=== PATIENT | female | born 1985 | race Caucasian/White ===

== ENCOUNTER 2017-07-25 21:31 | Emergency (ER) | payer SELFPAY ==
[~2017-07-25] VITALS: Ht 177.8 cm; Wt 77.1 kg
[~2017-07-25 21:31] MED LIST: ACULAR 3 ML3 M1 OP; AUGMENTIN 875 M1 TAB PO; BACTRIM DS 8001 TA1 PO; CLARITIN10 MG; CYCLOBENZAPRINE5 M3 PO; DOXYCYCLINE HY100 M3 PO; ESCITALOPRAM OX20 MG PO; FLEXERIL10 MG PO; HYDROCODONE BIT1 T11 PO; K-DUR 2020 MEQ PO; KEFLEX500 MG PO; LEXAPRO10 MG; LEXAPRO10 MG PO; LEXAPRO20 MG PO; MACROBID100 M1 PO; Motrin,Rufen800 MG PO; NAPROSYN500 MG PO; NKHM; PYRIDIUM200 M1 PO; TOBREX OPHTH S2.5 ML OPH; TRAMADOL HCL50 MG PO; TYLENOL W/CODEI1 TA2 PO; VICODIN 5/500 505 MG PO; ZOVIRAX400 MG PO
[2017-07-25] MEDS ORDERED: CLINDAMYCIN HC300 MG PO (22:34)
[2017-07-25] MEDS ORDERED: NAPROSYN500 MG PO (22:34)
== END 2017-07-25 22:37 | disposition home or self-care (01) ==
LOC: ED 21:31
DX: K02.9 Dental caries, unspecified (principal); F17.200 Nicotine dependence, unspecified, uncomplicated

== ENCOUNTER 2017-12-02 16:35 | Emergency (ER) | payer SELFPAY ==
[~2017-12-02] VITALS: Ht 177.8 cm; Wt 74.8 kg
--- NOTE | ~2017-12-02 | EKG ---
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
[~2017-12-02 16:35] MED LIST changes: +CLINDAMYCIN HC300 MG PO
[2017-12-02] MEDS ORDERED: VALIUM2 MG PO (16:42)
[2017-12-02] MEDS ORDERED: CELEXA40 MG PO (16:42)
[2017-12-02] MEDS ORDERED: VISTARIL50 MG PO (16:42)
[2017-12-02 17:15] LABS: BASO % 0.3 % (0.0-1.0); EOS # 0.1 10*3/uL (0.0-0.4); HEMATOCRIT 46.3 % (37.0-47.0); LYMPH # 2.1 10*3/uL (1.3-4.4); LYMPH % 21.6 % (27.0-41.0); MEAN CELL VOLUME 94.1 fl (81.0-99.0); MEAN CORPUSCULAR HGB 30.5 pg (27.0-31.0); MEAN CORPUSCULAR HGB CONC 32.4 g/dl (33.0-37.0); MEAN PLATELET VOLUME 11.4 fl (9.6-12.3); MONO # 0.6 10*3/uL (0.1-1.0); MONO % 5.8 % (3.0-9.0); NEUT # 6.9 10*3/uL (2.3-7.9); PLATELET COUNT AUTOMATED 194 10*3/uL (130-400); RED BLOOD COUNT 4.92 10*6/uL (4.10-5.10); RED CELL DISTRI WIDTH 12.3 % (0-14.5); WHITE BLOOD COUNT 9.7 10*3/uL (4.8-10.8)
[2017-12-02 17:18] LABS: BILIRUBIN NEGATIVE (NEGATIVE); BLOOD 3+ (NEGATIVE); CLARITY CLEAR (CLEAR); COLOR YELLOW (YELLOW); GLUCOSE NEGATIVE (NEGATIVE); KETONE NEGATIVE (NEGATIVE); LEUKO ESTERASE 1+ (NEGATIVE); NITRITE NEGATIVE (NEGATIVE); SPECIFIC GRAVITY <= 1.005 (1.005-1.030); UROBILINOGEN 0.2 E.U./dl (0.2-1.0)
[2017-12-02 17:26] LABS: BACTERIA 2+; WBC 21-30 wbc/hpf (0-5)
[2017-12-02 17:27] LABS: URINE AMPHETAMINES < 1000 (1000ng/ml); URINE BARBITURATES < 200 (200ng/ml); URINE BENZODIAZEPINES < 200 (200ng/ml); URINE CANNABINOIDS (THC) < 50 (50ng/ml); URINE COCAINE < 300 (300ng/ml); URINE METHADONE < 300 (300ng/ml); URINE OPIATES < 300 (300ng/ml); URINE PHENCYCLIDINE < 25 (25ng/ml)
[2017-12-02 17:35] LABS: ALBUMIN 3.7 gm/dl (3.1-4.5); ALKALINE PHOSPHATASE 85 U/L (45-117); BUN 8 mg/dl (7-24); CHLORIDE 108 mmol/L (98-107); CREATININE 0.97 mg/dL (0.55-1.02); POTASSIUM 3.7 mmol/L (3.5-5.1); SGOT/AST 8 IU/L (3-35); SGPT/ALT 17 U/L (12-78); SODIUM 140 mmol/L (136-145); TOTAL PROTEIN 6.9 gm/dL (6.4-8.2)
[2017-12-02 17:38] LABS: TROPONIN I < 0.015 ng/ml (<0.045)
[2017-12-02 17:43] LABS: THYROID STIM HORMONE (HS) 0.278 uIU/ml (0.358-4.75)
== END 2017-12-02 18:09 | disposition home or self-care (01) ==
LOC: ED 16:35
PROVIDERS: Nurse Practitioner Family
DX: R00.2 Palpitations (principal); R03.0 Elevated blood-pressure reading, without diagnosis of hypertension; Z79.899 Other long term (current) drug therapy

== ENCOUNTER 2019-02-08 10:55 | Emergency (ER) | payer SELFPAY ==
[~2019-02-08] VITALS: Ht 177.8 cm; Wt 86.2 kg
[~2019-02-08 10:55] MED LIST changes: +CELEXA40 MG PO; +VALIUM2 MG PO; +VISTARIL50 MG PO
[2019-02-08] MEDS ORDERED: CELEXA10 MG PO (10:58)
[2019-02-08] MEDS ORDERED: ROBAXIN-750750 MG PO (12:38)
[2019-02-08] MEDS ORDERED: IBUPROFEN600 MG PO (12:38)
== END 2019-02-08 12:46 | disposition home or self-care (01) ==
LOC: ED 10:55
DX: S29.012A Strain of muscle and tendon of back wall of thorax, initial encounter (principal); Z79.899 Other long term (current) drug therapy; W01.0XXA Fall on same level from slipping, tripping and stumbling without subsequent striking against object, initial encounter; Y93.89 Activity, other specified; Y92.89 Other specified places as the place of occurrence of the external cause; Y99.8 Other external cause status